=== PATIENT | female | born 1980 | race Caucasian/White ===

== ENCOUNTER → 2016-09-04 | Outpatient (CLI) | payer OTHER | END | disposition home or self-care (01) | LOC: RADMRIMAIN 18:36 | PROVIDERS: ATTEND Family Medicine | DX: Z53.9 Procedure and treatment not carried out, unspecified reason (principal) ==

== ENCOUNTER 2017-10-23 16:57 | Emergency (ER) | payer OTHER ==
[2017-10-23] MEDS ORDERED: ONDANSETRON 4 MG/2 ML VIAL IVP STA (17:38)
[2017-10-23] MEDS ORDERED: hydrOXYzine HCL 25 MG TAB PO STA (17:38)
[2017-10-23] MEDS ORDERED: MAG HYDROX/AL HYDROX/SIMETH 30 ML, HYOSCYAMINE ELIXIR 10 ML, CIMETIDINE HCL 300 MG PO STA ×3 (17:38)
[2017-10-23] MEDS ORDERED: FAMOTIDINE 20 MG TAB PO STA (17:38)
--- NOTE | 2017-10-23 17:40 | ED ---
General Adult HPI - General Chief complaint: Recheck/Abnormal Lab/Rx Stated complaint: Abd pain Time Seen by Provider: 10/23/17 17:16 Source: patient Mode of arrival: ambulatory Limitations: no limitations - History of Present Illness Initial comments: 37 yoF presenting with worsening anxiety, nausea, heart burn, and diarrhea. Patient states she has been struggling with anxiety for the past 6 months after a miscarriage. She states she has been her PCP twice this week. She was placed on Zoloft, Prednisone and a Z-pack for her anxiety as well as an upper respiratory infection. She states they have decided to prolong the dose of steroids secondary to "the nerves being inflamed in my chest." The patient states she has been waking up at night with heart burn, diaphoresis, and diarrhea. She denies personal or family history of early CA. She denies personal history of HTN, hypercholesterolemia, or tobacco abuse. Patient states her LMP began today. - Related Data Previous Rx's Medication Instructions Recorded Doxycycline Hyclate 100 mg PO BID 5 Days #10 tab 10/23/17 Ranitidine HCl [Zantac] 150 mg PO HS #30 tab 10/23/17 hydrOXYzine HCL [Atarax] 50 mg PO QID PRN #20 tab 10/23/17 Allergies Allergy/AdvReac Type Severity Reaction Status Date / Time sumatriptan [From Imitrex] Allergy Unknown Verified 10/23/17 17:11 sumatriptan succinate Allergy Unknown Verified 10/23/17 17:11 [From Imitrex] Review of Systems ROS Statement: Those systems with pertinent positive or pertinent negative responses have been documented in the HPI. Review of Systems Constitutional: Denies fever, chills Eyes: Denies change in vision, Denies pain Ears, nose, mouth, throat: Denies headaches, Denies sore throat Cardiovascular: Denies chest pain. Denies palpitations. positive heartburn Respiratory: Denies shortness of breath, Denies cough Gastrointestinal: Denies abdominal pain. Positive nausea, Denies vomiting, diarrhea. Genitourinary: Denies hematuria, Denies infections Musculoskeletal: Denies pain, Denies swelling Integumentary: Denies rash Neurological: Denies headache, focal weakness, focal numbness Psychiatric: Positive anxiety, Denies depression Hematologic/Lymphatic: Denies easy bleeding or bruising ROS Other: All systems not noted in ROS Statement are negative. Past Medical History Additional Past Medical History / Comment(s): MIGRAINE History of Any Multi-Drug Resistant Organisms: None Reported Past Surgical History: No Surgical Hx Reported Past Anesthesia/Blood Transfusion Reactions: No Reported Reaction Past Psychological History: No Psychological Hx Reported Smoking Status: Never smoker Past Alcohol Use History: None Reported Past Drug Use History: None Reported General Exam - General Exam Comments Initial Comments: General: Awake, alert, No acute Distress HENT: Normocephalic. Atraumatic Eyes: PERRL. EOMI. No scleral icterus. No injected conjunctiva Neck: Full ROM Chest/Lungs: Clear to auscultation bilaterally. No wheezing, rhonchi, or rales Cardiac: Regular rate, rhythm. No murmurs or rubs Abdomen/GI: [Soft, nontender, nondistended. No rebound, guarding, or rigidity. Musculoskeletal: Full ROM Skin: Warm, dry, intact Neurologic: A/Ox3, no weakness, no sensory deficit, no abnormal gait, no coordination deficit Psych: Anxious. Tearful. Limitations: no limitations Course Vital Signs 10/23/17 17:07 Temperature 97.9 F Pulse Rate 92 Respiratory 18 Rate Blood Pressure 137/76 O2 Sat by Pulse 97 Oximetry EKG Findings - EKG Comments: EKG Findings:: EKG shows sinus rhythm with short DE. No evidence of ST elevation , depression, or T wave inversion Medical Decision Making - Medical Decision Making Residual female presenting with her with heart burn and multiple other complaints. On initial exam the patient is awake, alert, and tearful. VSS. EKG shows NSR without ST elevation, depression. Her laboratory workup revealed a leukocytosis which is most likey secondary to the patient's prednisone use. Her CXR shows bronchitis and possibly a new infiltrate. Patient's CURB 65 score is 0. Her HEART score is 1. She has no RUQ tenderness and her hepatic panel is unremarkable. At this time patient's symptoms are likely secondary to her gastritis and GERD secondary to prednisone use. She was instructed to follow up with her primary care physician outpatient for possible stress test. She was instructed to stop taking the Zpack, continue the Zoloft as well as the steroid , and to take the new medications as prescribed. She was given Atarax for her anxiety. No further emergent workup indicated. She was given the appropriate return to ED instructions and follow up. Patient stable for discharge. - Lab Data Result diagrams: 10/23/17 18:07 10/23/17 18:07 Lab Results 10/23/17 10/23/17 10/23/17 Range/Units 18:07 18:07 18:07 WBC 17.1 H (3.8-10.6) k/uL RBC 5.41 H (3.80-5.40) m/uL Hgb 14.7 (11.4-16.0) gm/dL Hct 44.9 (34.0-46.0) % MCV 83.0 (80.0-100.0) fL MCH 27.1 (25.0-35.0) pg MCHC 32.7 (31.0-37.0) g/dL RDW 13.5 (11.5-15.5) % Plt Count 302 (150-450) k/uL Neutrophils % 88 % Lymphocytes % 8 % Monocytes % 2 % Eosinophils % 1 % Basophils % 0 % Neutrophils # 15.0 H (1.3-7.7) k/uL Lymphocytes # 1.4 (1.0-4.8) k/uL Monocytes # 0.4 (0-1.0) k/uL Eosinophils # 0.2 (0-0.7) k/uL Basophils # 0.0 (0-0.2) k/uL Sodium 143 (137-145) mmol/L Potassium 4.1 (3.5-5.1) mmol/L Chloride 108 H (98-107) mmol/L Carbon Dioxide 22 (22-30) mmol/L Anion Gap 13 mmol/L BUN 18 H (7-17) mg/dL Creatinine 0.70 (0.52-1.04) mg/dL Est GFR (CKD-EPI)AfAm >90 (>60 ml/min/1.73 sqM) Est GFR (CKD-EPI)NonAf >90 (>60 ml/min/1.73 sqM) Glucose 146 H (74-99) mg/dL Calcium 9.3 (8.4-10.2) mg/dL Total Bilirubin 0.2 (0.2-1.3) mg/dL Conjugated Bilirubin 0.0 (0.0-0.3) mg/dL Unconjugated Bilirubin 0.0 (0.0-1.1) mg/dL Delta Bilirubin 0.2 (0.0-0.2) mg/dL AST 23 (14-36) U/L ALT 51 (9-52) U/L Alkaline Phosphatase 89 (38-126) U/L Troponin I <0.012 (0.000-0.034) ng/mL Total Protein 6.4 (6.3-8.2) g/dL Albumin 3.7 (3.5-5.0) g/dL Lipase 170 (23-300) U/L Disposition Clinical Impression: Pneumonia, Chest pain, Anxiety Disposition: HOME SELF-CARE Condition: Good Instructions: Pneumonia (ED), Generalized Anxiety Disorder (ED), Diet for Stomach Ulcers and Gastritis (ED) Additional Instructions: Stop taking Z-pack. Continue taking Prednisone and Zoloft. Prescriptions: Doxycycline Hyclate 100 mg PO BID 5 Days #10 tab hydrOXYzine HCL [Atarax] 50 mg PO QID PRN #20 tab PRN Reason: Anxiety Ranitidine HCl [Zantac] 150 mg PO HS #30 tab Is patient prescribed a controlled substance at d/c from ED?: No Referrals: Carmen Ford DO [Primary Care Provider] - 1-2 days
--- NOTE | 2017-10-23 18:15 | XR ---
EXAMINATION TYPE: XR chest 2V DATE OF EXAM: 10/23/2017 COMPARISON: None HISTORY: 37-year-old female with pain TECHNIQUE: PA and lateral views FINDINGS: Heart normal size. Epicardial fat along the cardiac apex. Aorta and pulmonary vasculature within norm al limits. Mild interstitial prominence is noted. Patchy right suprahilar density. No other consolida tion or pleural effusion. IMPRESSION: 1. Interstitial prominence could reflect bronchitis or asthma. 2. Focal patchy atelectasis or early pneumonia at the right suprahilar region. Correlate with patient 's symptoms.
[2017-10-23 18:24] LABS: Basophils % (A) 0 %; Eosinophils # (A) 0.2 k/uL (0-0.7); Eosinophils % (A) 1 %; HCT 44.9 % (34.0-46.0); HGB 14.7 gm/dL (11.4-16.0); Lymphocytes # (A) 1.4 k/uL (1.0-4.8); Lymphocytes % (A) 8 %; MCH 27.1 pg (25.0-35.0); MCHC 32.7 g/dL (31.0-37.0); Mean Platelet Volume 7.5; Monocytes # (A) 0.4 k/uL (0-1.0); Monocytes % (A) 2 %; Neutrophils % (A) 88 %; Platelet Count 302 k/uL (150-450); RBC 5.41 m/uL (3.80-5.40); RDW 13.5 % (11.5-15.5); WBC 17.1 k/uL (3.8-10.6)
[2017-10-23 18:35] LABS: ALT 51 U/L (9-52); AST 23 U/L (14-36); Albumin 3.7 g/dL (3.5-5.0); Alkaline Phosphatase 89 U/L (38-126); Anion Gap 13 mmol/L; Bilirubin, Delta 0.2 mg/dL (0.0-0.2); Blood Urea Nitrogen 18 mg/dL (7-17); Calcium 9.3 mg/dL (8.4-10.2); Carbon Dioxide 22 mmol/L (22-30); Chloride 108 mmol/L (98-107); Glucose 146 mg/dL (74-99); Lipase 170 U/L (23-300); Potassium 4.1 mmol/L (3.5-5.1); Sodium 143 mmol/L (137-145); Total Bilirubin 0.2 mg/dL (0.2-1.3); Total Protein 6.4 g/dL (6.3-8.2)
[2017-10-23 20:09] VITALS: BP 122/60; PULSE 66; RESP 18; TEMP 98
== END 2017-10-23 20:07 | disposition home or self-care (01) ==
LOC: EC 16:57
DX: J18.9 Pneumonia, unspecified organism (principal); F41.9 Anxiety disorder, unspecified; J40 Bronchitis, not specified as acute or chronic; D72.829 Elevated white blood cell count, unspecified; R45.83 Excessive crying of child, adolescent or adult; R12 Heartburn; Z88.8 Allergy status to other drugs, medicaments and biological substances
CPT/HCPCS: 36415; 93005; 80048; 80076; 83690; 84484; 85025; 71046; 99284; 96374; J2405

== ENCOUNTER → 2018-05-27 | Outpatient (CLI) | payer OTHER ==
--- NOTE | 2018-05-27 17:28 | US ---
EXAMINATION TYPE: Transabdominal DATE OF EXAM: 09/28/17 COMPARISON: NONE CLINICAL HISTORY: Z36 Viability. EXAM PERFORMED: Transabdominal (TA) EXAM MEASUREMENTS: GESTATIONAL AGE / DATING Physician Established: Not yet established Dates by LMP: (13 weeks/5 days) EDC: 11/27/2018 Dates by First Scan: No previous. This is first scan Dates by Current Scan for: (13 weeks/0 days) EDC: 12/02/2018 MATERNAL ANATOMY Uterus: 14.0 x 6.5 x 7.2cm Right Ovary: Not seen. Left Ovary: 3.1 x 3.3 x 2.4cm Post CDS / Adnexa: wnl Presence of free fluid: no Presence of corpus luteal cyst: Not identified in left ovary Presence of subchorionic bleed: no GESTATION / SURVEY CRL: 6.8cm (13 weeks/0 days) Yolk Sac (normal less than 6mm): not seen Heart Rate: 144 bpm Rhythm: Normal IUP: Viable IUP Date of LMP: 02/20/2018 Beta HcG (if available): NA Tech findings called to Dr Gamble at exam's end. JJ IMPRESSION: SINGLE, LIVE IUP WITH HEART RATE 144 BPM. MEASUREMENTS CONSISTENT WITH GESTATIONAL AGE 13 WEEKS/0 DAYS AND EDC 12/02/2018.
== END | disposition home or self-care (01) ==
LOC: LABWHC1 16:25
PROVIDERS: ATTEND Obstetrics & Gynecology
DX: Z36.9 Encounter for antenatal screening, unspecified (principal)
CPT/HCPCS: 76801

== ENCOUNTER 2018-10-04 15:54 | Outpatient (CLI) | payer OTHER ==
--- NOTE | 2018-10-04 17:08 | US ---
EXAMINATION TYPE: US OB >= 14 wk fetus DATE OF EXAM: 10/04/2018 COMPARISON: US CLINICAL HISTORY: Complete. Abnormal NST. TECHNIQUE: Transabdominal (TA) GESTATIONAL AGE / DATING Physician Established: (31 weeks/ 4 days) EDC: 12/02/2018 Dates by LMP: 02/20/2018 (32 weeks/2 days) EDC: 11/27/2018 Dates by First Scan: (31 weeks/4 days) EDC: 12/02/2018 Dates by Current Scan: (31 weeks/4 days) EDC: 12/02/2018 SURVEY IUP: Single PLACENTA: Posterior PREVIA: No Previa DUANE: 18.6 cm Normal CERVICAL LENGTH (transabdominal: norm > 3.0cm): 3.6 cm BIOMETRY PRESENTATION: Vertex BPD: 8.0 cm 32 weeks / 1 days HC: 29.4 cm 32 weeks / 3 days AC: 26.7 cm 30 weeks / 5 days FL: 6.2 cm 31 weeks / 6 days ESTIMATED WEIGHT IN GRAMS: 1760 grams ESTIMATED WEIGHT IN LBS/OZ: 3 lbs. 14 oz. WEIGHT PERCENTAGE BASED ON ESTABLISHED DATES: 16.2% HC/AC: 1.1 Normal FL/AC: 23.1 Normal HEART RATE: 136 bpm RHYTHM: Normal IMPRESSION: SINGLE VIABLE INTRAUTERINE WITH NO ACUTE PROCESS; GROWTH ACCORDING TO DATES.
[2018-10-04 17:59] VITALS: BP 142/77; PULSE 97; RESP 16; TEMP 98.1
--- NOTE | 2018-10-05 16:55 | P.MSEPDOC ---
Presenting Problems - Arrival Data Date of Arrival on Unit: 10/04/18 Time of Arrival on Unit: 15:59 Mode of Transport: Ambulatory - Complaint OB-Reason for Admission/Chief Complaint: NST Medical History - Information : 2 Para: 0 Term: 0 : 0 Abortions: Spontaneous or Elective: 1 Number of Living Children: 0 - Gestational Age Gestational Age by DELIA (wks/days): 31 Weeks and 5 Days Review of Systems - Review of Systems Constitutional: No problems Breast: No problems ENT: No problems Cardiovascular: No problems Respiratory: No problems Gastrointestinal: No problems Genitourinary: No problems Musculoskeletal: No problems Neurological: No problems Skin: No problems Vital Signs - Temperature Temperature: 98.1 F Temperature Source: Oral - Pulse Pulse Oximetery Pulse Rate: 97 Pulse Assessment Method: Pulse Oximetry - Respirations Respiratory Rate: 16 Oxygen Delivery Method: Room Air - Blood Pressure Right Arm Blood Pressure: 142/77 Blood Pressure Mean: 98 Blood Pressure Source: Automatic Cuff Medical Screen Scoring (Pre) - Cervical Exam Dilation: Exam Deferred - Uterine Contractions Frequency: N/A Duration: N/A Intensity: N/A - Maternal Vital Signs Maternal Temperature: N/A Maternal Blood Pressure: N/A Signs of Preeclampsia: N/A Maternal Respirations: N/A - Pain Assessment Pain Scale Used: Numeric (1 - 10) Pain Intensity: 0 - Assessment Baseline FHR: 145 Heart Rate - NICHD Category: Category I (Normal) = 0 NST: Reactive Position: N/A - Total Score Total Score (Pre): 0 - Level of Risk Level of Risk: N/A Physician Notification (Pre) - Physician Notified Physician Notified Date: 10/04/18 Physician Notified Time: 16:52 Physician/Practitioner Notifed:: jimmy Spoke With: jimmy New Order Received: Yes - Notification Comment Comment: reported pt here for NST, which is reactive, reported a scheduled ultrasound was completed and wnl Disposition - Disposition OB Disposition: Discharge to home Discharge Date: 10/04/18 Discharge Time: 17:11 I agree with the RN Medical Screening Exam: Yes Risk & Benefit of care provided described in d/c instruction: Yes Diagnosis: RELATED CONDITIONS, UNSPECIFIED, THIRD TRIMESTER
== END 2018-10-04 17:11 | disposition home or self-care (01) ==
LOC: FBPOP 15:54
PROVIDERS: ATTEND Obstetrics & Gynecology
DX: O26.93 Pregnancy related conditions, unspecified, third trimester (principal); Z3A.31 31 weeks gestation of pregnancy
CPT/HCPCS: 59025; 76805; 99213

== ENCOUNTER 2018-10-25 15:35 | Outpatient (CLI) | payer OTHER ==
[2018-10-25 17:05] LABS: Basophils % (A) 0 %; Eosinophils # (A) 0.1 k/uL (0-0.7); Eosinophils % (A) 1 %; HCT 40.5 % (34.0-46.0); HGB 13.4 gm/dL (11.4-16.0); Lymphocytes # (A) 1.9 k/uL (1.0-4.8); Lymphocytes % (A) 15 %; MCH 28.3 pg (25.0-35.0); MCHC 33.2 g/dL (31.0-37.0); MCV 85.2 fL (80.0-100.0); Mean Platelet Volume 8.9; Monocytes # (A) 0.5 k/uL (0-1.0); Monocytes % (A) 4 %; Neutrophils # (A) 9.5 k/uL (1.3-7.7); Neutrophils % (A) 78 %; Platelet Count 225 k/uL (150-450); RBC 4.75 m/uL (3.80-5.40); WBC 12.2 k/uL (3.8-10.6)
[2018-10-25 17:26] LABS: ALT 33 U/L (9-52); AST 24 U/L (14-36); Blood Urea Nitrogen 7 mg/dL (7-17); LDH 327 U/L (313-618); Uric Acid 4.9 mg/dL (3.7-7.4)
[2018-10-25 18:07] LABS: Appearance,Urine Cloudy (Clear); Bacteria,Urine Few /hpf; Bilirubin,Urine Negative (Negative); Blood,Urine Negative (Negative); Color,Urine Light Yellow; Glucose,Urine (UA) Negative (Negative); Ketones,Urine Negative (Negative); Leukocyte Esterase,Urine Large (Negative); Mucus,Urine Rare /hpf; Nitrite,Urine Negative (Negative); PH, Urine 6.5 (5.0-8.0); Protein,Urine Negative (Negative); RBC,Urine 3 /hpf (0-5); Specific Gravity,Urine 1.015 (1.001-1.035); Squamous Epithelial Cell,Urine 7 /hpf (0-4); Urobilinogen,Urine <2.0 mg/dL (<2.0); WBC,Urine 19 /hpf (0-5)
--- NOTE | 2018-11-07 08:29 | P.MSEPDOC ---
Presenting Problems - Arrival Data Date of Arrival on Unit: 10/25/18 Time of Arrival on Unit: 15:30 Mode of Transport: Ambulatory - Complaint OB-Reason for Admission/Chief Complaint: Elevated Blood Pressure Comment: PT REPORTS FROM DR DALY OFFICE WITH ORDERS, DOCTOR JERZY ASSESSED PATIENT AT THE BEDSIDE Physician Notification (Pre) - Physician Notified Physician/Practitioner Notifed:: yes Spoke With: jerzy Peralta Order Received: Yes - Notification Comment Comment: discharge home. to keep wednesday appt as ssched for repeat nst and b.p recheck in office. Medical Screen Scoring (Post) - Cervical Exam Dilation: Exam Deferred Effacement: Exam Deferred - Uterine Contractions Frequency: N/A Duration: N/A Intensity: N/A - Maternal Vital Signs Maternal Temperature: N/A Maternal Blood Pressure: Systolic >139 = 2 Signs of Preeclampsia: Headache = 1, Visual Disturbance = 1 Maternal Respirations: N/A - Pain Assessment Pain Scale Used: Numeric (1 - 10) Pain Intensity: 1 Pain Frequency: Intermittent Pain Behavior: None Exhibited, Vocalization Pain Aggravating Factors: None - Maternal Trauma Maternal Trauma: N/A - Assessment Heart Rate: 140 Heart Rate - NICHD Category: Category I (Normal) = 0 NST: Reactive Station: N/A - Total Score Total Score (Post): 4 - Post Treatment Level of Risk Post Treatment Level of Risk: Low (0-5) Physician Notification (Post) - Physician Notified Physician Notified Date: 10/25/18 Physician Notified Time: 18:16 Physician/Practitioner Notified:: jerzy Spoke With: jerzy Peralta Order Received: Yes - Notification Comment Comment: discharge home to keep sched appt on wednesday in office for b/p recheck and repeat nst. Disposition - Disposition OB Disposition: Discharge to home Discharge Date: 10/25/18 Discharge Time: 18:40 I agree with the RN Medical Screening Exam: Yes Risk & Benefit of care provided described in d/c instruction: Yes Diagnosis: GESTATIONAL HTN W/O SIGNIFICANT PROTEINURIA, THIRD TRIMESTER
== END 2018-10-25 18:40 | disposition home or self-care (01) ==
LOC: FBPOP 15:35
PROVIDERS: ATTEND Obstetrics & Gynecology
DX: O13.3 Gestational [pregnancy-induced] hypertension without significant proteinuria, third trimester (principal); Z3A.00 Weeks of gestation of pregnancy not specified
CPT/HCPCS: 59025; 81001; 82565; 83615; 84450; 84460; 84520; 84550; 85025; 99215

== ENCOUNTER 2018-10-30 16:00 | Inpatient (IN) | payer OTHER ==
[2018-10-30] MEDS ORDERED: OXYTOCIN 10 UNIT/ML 1 ML VIAL IM PRN (16:28)
[2018-10-30] MEDS ORDERED: LIDOCAINE 0.5% (PF) 5 MG/ML (50 ML SDV) SQ PRN (16:28)
[2018-10-30] MEDS ORDERED: METHYLERGONOVINE 0.2 MG/ML 1 ML AMP IM PRN (16:28)
[2018-10-30] MEDS ORDERED: TERBUTALINE 1 MG/ML VIAL SQ PRN (16:28)
[2018-10-30] MEDS ORDERED: CARBOPROST TROMETHAMINE 250 MCG/ML 1 ML AMP IM PRN (16:28)
[2018-10-30] MEDS ORDERED: AMPICILLIN 2,000 MG in SODIUM CHLORIDE 0.9% 100 ML IVPB STA (16:28)
[2018-10-30] MEDS: LACTATED RINGERS 1,000 ML IV SCH ×3 (17:00→22:30)
[2018-10-30 17:04] VITALS: BMI 36.9
[2018-10-30] MEDS ORDERED: OXYTOCIN 30 UNITS/500 ML NS 30 UNIT in SALINE 1 500ML.BAG IV SCH (17:15)
[2018-10-30 17:21] LABS: Basophils % (A) 0 %; Eosinophils # (A) 0.1 k/uL (0-0.7); Eosinophils % (A) 1 %; HCT 37.4 % (34.0-46.0); HGB 12.6 gm/dL (11.4-16.0); Lymphocytes # (A) 2.1 k/uL (1.0-4.8); Lymphocytes % (A) 15 %; MCH 28.6 pg (25.0-35.0); MCHC 33.7 g/dL (31.0-37.0); MCV 84.9 fL (80.0-100.0); Mean Platelet Volume 8.9; Monocytes # (A) 0.7 k/uL (0-1.0); Monocytes % (A) 5 %; Neutrophils # (A) 11.2 k/uL (1.3-7.7); Neutrophils % (A) 78 %; Platelet Count 211 k/uL (150-450); RBC 4.41 m/uL (3.80-5.40); RDW 14.6 % (11.5-15.5); WBC 14.4 k/uL (3.8-10.6)
[2018-10-30 17:33] LABS: ALT 35 U/L (9-52); AST 22 U/L (14-36); Blood Urea Nitrogen 12 mg/dL (7-17); LDH 349 U/L (313-618); Uric Acid 4.6 mg/dL (3.7-7.4)
[2018-10-30 17:40] LABS: Amorphous Sediment,Urine Rare /hpf; Appearance,Urine Clear (Clear); Bacteria,Urine Occasional /hpf; Bilirubin,Urine Negative (Negative); Blood,Urine Trace (Negative); Calcium Oxalate Crystals,Urine Rare /hpf; Color,Urine Yellow; Glucose,Urine (UA) Negative (Negative); Ketones,Urine Negative (Negative); Leukocyte Esterase,Urine Negative (Negative); Mucus,Urine Rare /hpf; Nitrite,Urine Negative (Negative); PH, Urine 6.5 (5.0-8.0); Protein,Urine Negative (Negative); RBC,Urine 8 /hpf (0-5); Specific Gravity,Urine 1.016 (1.001-1.035); Squamous Epithelial Cell,Urine 2 /hpf (0-4); Urobilinogen,Urine <2.0 mg/dL (<2.0); WBC,Urine 5 /hpf (0-5)
--- NOTE | 2018-10-30 17:55 | P.HPOB ---
History of Present Illness H&P Date: 10/30/18 Chief Complaint: Leaking of fluid This patient is a pleasant 38-year-old 2 para 0 female estimated date of confinement 11/27/2018 estimated gestational age 36-0/7 weeks who presents to labor and delivery with complaints of a gush of fluid at approximately 3:00 this afternoon. care is per Dr. Henderson complicated by advanced for maternal age. Appears this patient has declined maternal medicine evaluation or any genetic evaluation. Patient was sent to labor and delivery on the for hypertension and evaluation at that time was negative. She did return to the office on Wednesday and had a category 1 nonstress test and normal blood pressure. Patient states that she had a gush of fluid at 3:00 this afternoon and not having any contractions. Review of Systems Genitourinary: Reports Menstruation: Reports amenorrhea Past Medical History Past Medical History: Hypertension Additional Past Medical History / Comment(s): MIGRAINE, hypertension with , scoliosis, IBS History of Any Multi-Drug Resistant Organisms: None Reported Past Surgical History: No Surgical Hx Reported Past Anesthesia/Blood Transfusion Reactions: No Reported Reaction Past Psychological History: Anxiety, Depression Additional Psychological History / Comment(s): prev. on zoloft and quit med during Smoking Status: Never smoker Past Alcohol Use History: None Reported Past Drug Use History: None Reported - Past Family History Father Family Medical History: Cancer, Diabetes Mellitus, Deep Vein Thrombosis (DVT) Additional Family Medical History / Comment(s): kidney cancer (surgery) Mother Family Medical History: Cancer, Deep Vein Thrombosis (DVT), Seizure Disorder Additional Family Medical History / Comment(s): breast CA (radiation), Primary Lateral Sclerosis (form of ALS) Brother(s) Family Medical History: Deep Vein Thrombosis (DVT) Medications and Allergies Home Medications Medication Instructions Recorded Confirmed Type Ranitidine HCl [Zantac] 150 mg PO HS #30 tab 10/23/17 10/30/18 Rx Ondansetron [Zofran] 4 mg PO Q12HR PRN MDD 2 10/30/18 10/30/18 History Pnv,Calcium 72/Iron/Folic Acid 1 tab PO DAILY 10/30/18 10/30/18 History [ Plus Tablet] Pseudoephedrine [Sudafed] 30 mg PO Q6H PRN MDD 4 10/30/18 10/30/18 History Allergies Allergy/AdvReac Type Severity Reaction Status Date / Time sumatriptan [From Imitrex] Allergy Unknown Verified 10/04/18 15:55 sumatriptan succinate Allergy Unknown Verified 10/04/18 15:55 [From Imitrex] Exam Intake and Output 10/30/18 10/30/18 10/30/18 06:59 14:59 22:59 Other: Weight 110.223 kg - OBG Physical Exam Abdomen: bowel sounds normal, no diffuse tenderness, no bruit present, no gua rding noted, no hepatomegaly, no splenomegaly, no mass Vulva: both: normal Vagina: Gross rupture membranes is noted Vagina: no discharge Cervix: Cervix is 2 cm 50% effaced and soft and -2 station Uterus: enlarged (Fundal height the office was 36 cm) Results blood work shows she is A positive, rubella nonimmune, RPR nonreactive, hepatitis B negative, group B strep is unknown, ultrasound done on October 04 showed a appropriately grown fetus in the vertex presentation. Result Diagrams: 10/30/18 16:50 10/30/18 16:50 Abnormal Lab Results - Last 24 Hours (Table) 10/30/18 10/30/18 10/30/18 Range/Units 16:50 16:50 16:50 WBC 14.4 H (3.8-10.6) k/uL Neutrophils # 11.2 H (1.3-7.7) k/uL Creatinine 0.49 L (0.52-1.04) mg/dL Urine Blood Trace H (Negative) Urine RBC 8 H (0-5) /hpf Calcium Oxalate Crystal Rare H (None) /hpf Amorphous Sediment Rare H (None) /hpf Urine Bacteria Occasional H (None) /hpf Urine Mucus Rare H (None) /hpf Assessment and Plan Assessment: This is a 38-year-old 2 para 0 female 36-0/7 weeks gestation who is admitted to labor and delivery with premature rupture membranes. Patient is unknown group B strep status and due to prematurity and this fact I'm going to start her on IV antibiotics for prophylaxis. Since she is not having any contractions we'll also begin Pitocin. Patient did have a few mild variable decelerations however at this time heart tones are reassuring. I did have a long discussion with the patient and her about the need for delivery due to the ruptured membranes and the possibility of special care as well. All the patient's questions are answered. Patient also has elevated blood pressure on admission of 163/87. This does appear to be anxiety related however will check preeclampsia labs and continue to monitor her blood pressure closely. (1) 36 weeks gestation of Current Visit: Yes Status: Acute Code(s): Z3A.36 - 36 WEEKS GESTATION OF SNOMED Code(s): 47945950 (2) Premature rupture of membranes Current Visit: Yes Status: Acute Code(s): O42.90 - CRISTIAN ROM, 7TH0 BETW RUPT & ONST LABR, UNSP WEEKS OF GEST SNOMED Code(s): 58741683 (3) Gestational hypertension Current Visit: Yes Status: Acute Code(s): O13.9 - GESTATIONAL HTN W/O SIGNIFICANT PROTEINURIA, UNSP TRIMESTER SNOMED Code(s): 665296520 (4) Elderly primigravida in third trimester Current Visit: Yes Status: Acute Code(s): O09.513 - SUPERVISION OF ELDERLY PRIMIGRAVIDA, THIRD TRIMESTER SNOMED Code(s): 10566722
[2018-10-30 17:59] LABS: INR 0.8 (<1.2); Partial Thromboplastin Time 23.9 sec (22.0-30.0); Prothrombin Time 9.3 sec (9.0-12.0)
[2018-10-30] MEDS ORDERED: PHENYLEPHRINE-0.9% NACL SYG 1 MG/10 ML SYRINGE ONE (21:00)
[2018-10-30] MEDS ORDERED: ceFAZolin 1,000 MG VIAL ONE (21:00)
[2018-10-30] MEDS ORDERED: KETOROLAC 30 MG/ML 1 ML VIAL ONE (21:00)
[2018-10-30] MEDS ORDERED: MORPHINE SULFATE (PF) 0.3 MG/0.3 ML SYR ONE (21:00)
[2018-10-30] MEDS ORDERED: ONDANSETRON 4 MG/2 ML VIAL ONE (21:00)
[2018-10-30] MEDS ORDERED: AMPICILLIN 1,000 MG in SODIUM CHLORIDE 0.9% 50 ML IVPB SCH (21:00)
[2018-10-30] MEDS ORDERED: LACTATED RINGERS 1,000 ML BAG IV ONE (21:00)
[2018-10-30] MEDS ORDERED: NALBUPHINE 10 MG/ML (1 ML AMP) ONE (21:00)
[2018-10-30] MEDS ORDERED: OXYTOCIN 10 UNIT/ML 1 ML VIAL ONE (21:00)
[2018-10-30] MEDS ORDERED: ACETAMINOPHEN TAB 325 MG TAB PO PRN (21:48)
[2018-10-30] MEDS ORDERED: ONDANSETRON 4 MG/2 ML VIAL IVP PRN (21:48)
[2018-10-30] MEDS ORDERED: NALOXONE 0.4 MG/ML 1 ML VIAL IV PRN (21:48)
[2018-10-30] MEDS ORDERED: diphenhydrAMINE 25 MG CAP PO PRN (21:48)
[2018-10-30] MEDS ORDERED: ZOLPIDEM 5 MG TAB PO PRN (21:48)
[2018-10-30] MEDS ORDERED: METOCLOPRAMIDE 5 MG/ML 2 ML VIAL IVP PRN (21:48)
[2018-10-30] MEDS ORDERED: diphenhydrAMINE 50 MG/ML 1 ML VIAL IVP PRN (21:48)
[2018-10-30] MEDS ORDERED: SIMETHICONE 80 MG CHEWABLE PO PRN (21:48)
[2018-10-30] MEDS ORDERED: LANOLIN CREAM 5 GM TUBE TOPICAL PRN (21:48)
[2018-10-30] MEDS ORDERED: MEASLES-MUMPS-RUBELLA VACC/PF 12,500 UNIT/0.5 ML VIAL SQ ONE (21:48)
[2018-10-30] MEDS ORDERED: OXYTOCIN 20 UNITS/1000 ML NS 1,000 ML IV SCH (22:00)
--- NOTE | 2018-10-30 22:11 | P.OP ---
Date of Procedure: 10/30/18 Preoperative Diagnosis: #1: 36-0/7 weeks . #2: premature rupture membranes. #3: Elderly primigravida. #4: Category 2 heart tones persistent remote from delivery #5: Gestational hypertension Postoperative Diagnosis: #1: Same. #2: Double nuchal cord. #3: Probable intrauterine growth restriction Procedure(s) Performed: Emergent primary low transverse section Anesthesia: spinal Surgeon: Romel Sifuentes Handle Maker #1: Ashley Tobin Estimated Blood Loss (ml): 600 Pathology: other (Placenta) Condition: stable Disposition: floor Indications for Procedure: Please see dictated H&P for intimate details of this patient's admission. Brief summary this is a pleasant 38-year-old 2 para 1 female 36-0/7 weeks gestation who is admitted later this afternoon with complaints of gush of fluid at about 3 in the afternoon. heart tones are category 1 however there are some variable decelerations. Patient's cervix is 2 cm dilated and she's having no contractions. Patient started on antibiotics due to unknown group B strep status. Patient's subsequent a gets Pitocin induction of labor. Patient begins having decreased variability and repetitive variable decelerations. Despite the usual resuscitative measures these do not resolve and I recommended proceed with immediate delivery. Patient and I and her discussed this and agreed to proceed. Patient does understand the surgery and risks. Operative Findings: This is a vigorous viable male infant Apgars 7 and 9 delivery time 2116 hrs. Infant had a very small placenta with a double nuchal cord. Infant weighed 4 lbs. 6 oz. suggestive of intrauterine growth restriction. appeared grossly normal Description of Procedure: This patient has a Pacheco catheter placed to straight drain. Patient's quickly taken to the operating room. At that time heart tones do rebound to the 120s to 130s but she continues to have some variable decelerations. I discussed with the anesthesiologist and we feel that we do have the necessary time to proceed with spinal anesthetic. Spinal anesthetic is administered. Patient is adequate level of anesthesia. She has abdominal prep and drape. Scalpels and taken and a Pfannenstiel skin incision is then made. A second scalpel is taken down to the fascia and the fascia scored with a knife. Fascial incision extended bilaterally using the Perez scissors. Fascia is then dissected sharply off the rectus muscles. Rectus muscles are the peritoneum identified and entered sharply. Peritoneal incision extended bluntly. Bladder blade is then placed. Bladder peritoneum was taken off the lower uterine segment. Scalpels and taken and a low transverse uterine incision is then made. Using a hemostat I into the uterine cavity bluntly. The loss of small amount of clear fluid. This uterine incision is then extended bluntly. The 's head is then delivered in the vertex presentation with fundal pressure. Mouth and nares are bulb suctioned. There is nuchal cord 2. The umbilical cord is very thin. We then have delivery the rest of this infant's body. This is a vigorous viable male infant Apgars 7 and 9 delivery time is 2116 hrs. Infant does have spontaneous respiration and good cry and grossly appears normal although it does appear to be gross restricted in appearance. The umbilical cord is doubly clamped and cut is handed off to special care nurses in attendance. Placenta is then manually extracted. This is sent off to pathology. Uterus is large and bulky and is delivered through the incision with some effort. Uterine incision demarcated with Faye clamps and then closed using 0 Vicryl running locked fashion. This is done in 2 layers. Excellent hemostasis is noted. The tubes and ovaries appear normal for term gestation. Excess fluid is removed from the abdomen and pelvis. Uterus placed back into the abdomen. Parietal peritoneum was then closed using 0 Vicryl running fashion. Rectus muscles reapproximated in 0 Vicryl interrupted fashion. Fascia is then closed using 0 PDS. Fascial incision is intact and hemostatic. Subcutaneous tissues and closed using a 3-0 Vicryl. Skin is and closed using gosia. Excellent hemostasis is noted. All counts are correct 3. There are no complications. Infant and mother are taken to the birthing suite in satisfactory condition.
[2018-10-31] MEDS: KETOROLAC 30 MG/ML 1 ML VIAL IVP PRN ×3 (05:05→19:25)
[2018-10-31] MEDS: ceFAZolin IN SWFI 2 GM/20 ML SYRINGE IVP SCH ×2 (05:07→13:13)
[2018-10-31 06:21] LABS: Basophils % (A) 0 %; Eosinophils % (A) 0 %; HCT 37.4 % (34.0-46.0); HGB 12.3 gm/dL (11.4-16.0); Lymphocytes # (A) 1.9 k/uL (1.0-4.8); Lymphocytes % (A) 11 %; MCH 28.3 pg (25.0-35.0); MCHC 32.9 g/dL (31.0-37.0); MCV 85.9 fL (80.0-100.0); Mean Platelet Volume 8.6; Monocytes # (A) 0.6 k/uL (0-1.0); Monocytes % (A) 4 %; Neutrophils # (A) 14.7 k/uL (1.3-7.7); Neutrophils % (A) 84 %; Platelet Count 193 k/uL (150-450); RBC 4.36 m/uL (3.80-5.40); RDW 14.6 % (11.5-15.5); WBC 17.5 k/uL (3.8-10.6)
--- NOTE | 2018-10-31 06:31 | P.PN ---
Progress Note - Text Progress Note Date: 10/31/18 Post op day 1 from spinal with duramorph, patient sitting up in bed this morning. no lower ext weakness, able to stand and walk. no parasthesia. no headaches or pruritis. able to urinate. continue to monitor. will sign off. contact with any issues.
[2018-10-31] MEDS: SENNOSIDES-DOCUSATE SODIUM 1 EACH TAB PO SCH ×2 (09:17→21:13)
--- NOTE | 2018-10-31 13:27 | P.PNOBGPC ---
Subjective - Subjective Principal diagnosis: Postop day 1 Interval history: Overall doing very well. She is involuting, voiding, and she is tolerating her diet. She voices no complaints. Vital signs stable afebrile. Patient reports: Reports appetite normal, Reports voiding normally, Reports pain well controlled, Reports ambulating normally : in NICU Objective - Vital Signs Latest vital signs: Vital Signs Temp Pulse Resp BP Pulse Ox 10/31/18 12:00 98.3 F 105 H 16 128/76 98 10/31/18 09:12 98.4 F 102 H 17 131/80 99 10/31/18 04:00 98.4 F 107 H 16 142/72 98 10/30/18 23:46 98.3 F 93 14 128/71 10/30/18 23:15 96 14 135/76 10/30/18 22:45 98.2 F 105 H 14 134/82 97 10/30/18 22:30 100 16 142/78 98 10/30/18 22:15 104 H 14 125/62 10/30/18 22:00 106 H 14 122/61 10/30/18 21:45 96.4 F L 112 H 14 114/54 98 10/30/18 16:27 98.8 F 117 H 20 163/87 Intake and Output 10/30/18 10/31/18 10/31/18 22:59 06:59 14:59 Intake Total 1100 Output Total 500 200 Balance 1100 -500 -200 Intake: Intake, IV Titration 1100 Amount Ampicillin 2,000 mg In 100 Sodium Chloride 0.9% 100 ml @ 200 mls/hr IVPB ONCE STA Rx#:[id number] Lactated Ringers 1,000 ml 1000 @ 125 mls/hr IV .Q8H [facility] Rx#:[id number] Output: Urine 500 200 Uretheral (Pacheco) 200 Other: # Voids 3 1 Weight 110.223 kg - Labs Labs: Abnormal Lab Results - Last 24 Hours (Table) 10/30/18 10/30/18 10/30/18 Range/Units 16:50 16:50 16:50 WBC 14.4 H (3.8-10.6) k/uL Neutrophils # 11.2 H (1.3-7.7) k/uL Fibrinogen (200-500) mg/dL Creatinine 0.49 L (0.52-1.04) mg/dL Urine Blood Trace H (Negative) Urine RBC 8 H (0-5) /hpf Calcium Oxalate Crystal Rare H (None) /hpf Amorphous Sediment Rare H (None) /hpf Urine Bacteria Occasional H (None) /hpf Urine Mucus Rare H (None) /hpf U Random Total Protein (<12) mg/dL 10/30/18 10/30/18 10/31/18 Range/Units 16:50 16:50 05:39 WBC 17.5 H (3.8-10.6) k/uL Neutrophils # 14.7 H (1.3-7.7) k/uL Fibrinogen 636 H (200-500) mg/dL Creatinine (0.52-1.04) mg/dL Urine Blood (Negative) Urine RBC (0-5) /hpf Calcium Oxalate Crystal (None) /hpf Amorphous Sediment (None) /hpf Urine Bacteria (None) /hpf Urine Mucus (None) /hpf U Random Total Protein 14 H (<12) mg/dL
[2018-10-31] MEDS: ZANTAC 150 MG PO SCH ×2 (17:36→18:14)
[2018-10-31] MEDS: LACTATED RINGERS 1,000 ML IV SCH ×3 (21:12→23:10)
[2018-10-31] MEDS: HYDROcodone/APAP 5-325MG 1 EACH TAB PO PRN (22:05)
[2018-11-01] MEDS: IBUPROFEN 600 MG TAB PO PRN ×3 (04:19→16:28)
[2018-11-01] MEDS: ZANTAC 150 MG PO SCH ×2 (07:32→17:06)
--- NOTE | 2018-11-01 08:41 | P.PNOBGPC ---
Subjective - Subjective Principal diagnosis: Postop day 2 Interval history: Overall doing very well. She is involuting, voiding and she is tolerating her diet. Her incision is clean dry and intact. We'll remove the dressing this morning. We'll continue current care. Patient reports: Reports appetite normal, Reports voiding normally, Reports pain well controlled, Reports ambulating normally : in NICU Objective - Vital Signs Latest vital signs: Vital Signs Temp Pulse Resp BP Pulse Ox 11/01/18 08:00 97.9 F 105 H 13 132/81 100 11/01/18 00:00 98.3 F 101 H 15 135/77 10/31/18 20:00 98 F 111 H 15 139/89 10/31/18 16:00 98.4 F 90 16 128/83 98 10/31/18 12:00 98.3 F 105 H 16 128/76 98 10/31/18 09:12 98.4 F 102 H 17 131/80 99 Intake and Output 10/31/18 11/01/18 11/01/18 22:59 06:59 14:59 Other: # Voids 2 1 1
[2018-11-01] MEDS: SENNOSIDES-DOCUSATE SODIUM 1 EACH TAB PO SCH ×2 (10:38→20:43)
[2018-11-01] MEDS ORDERED: DIPH,PERTUS(ACELL)TETVAC-LF 0.5 ML VIAL IM ONE (20:38)
[2018-11-01] MEDS: HYDROcodone/APAP 5-325MG 1 EACH TAB PO PRN (22:31)
[2018-11-02] MEDS: IBUPROFEN 600 MG TAB PO PRN ×3 (04:40→19:31)
--- NOTE | 2018-11-02 08:55 | P.PNOBGPC ---
Subjective - Subjective Principal diagnosis: post op day 3 Interval history: Doing very well postop day 3. She is involuting, voiding and tolerating her diet. She voices complaining of some increased abdominal tenderness feels kind of like bruising but overall her incisions clean dry and intact. She is reassured. Patient reports: Reports appetite normal, Reports voiding normally, Reports pain well controlled, Reports ambulating normally : in NICU Objective - Vital Signs Latest vital signs: Vital Signs Temp Pulse Resp BP Pulse Ox 11/02/18 08:00 98.0 F 103 H 16 123/72 98 11/02/18 00:00 97.7 F 105 H 18 125/74 98 11/01/18 16:00 99.0 F 105 H 16 129/80 99 Intake and Output 11/01/18 11/02/18 11/02/18 22:59 06:59 14:59 Intake Total 600 Balance 600 Intake: Oral 600 Other: # Voids 1 2 2 - Exam Lungs: bilateral: normal Chest: Normal S1, Normal S2 Extremities: Present: normal Abdomen: Present: normal appearance, soft. Absent: distention, tenderness Incision: Present: normal, dry, intact Uterus: Present: normal, firm
[2018-11-02] MEDS: SENNOSIDES-DOCUSATE SODIUM 1 EACH TAB PO SCH ×2 (09:15→21:30)
[2018-11-02] MEDS: ZANTAC 150 MG PO SCH ×2 (09:15→18:06)
[2018-11-02] MEDS: HYDROcodone/APAP 5-325MG 1 EACH TAB PO PRN ×2 (16:20→22:31)
[2018-11-03] MEDS: IBUPROFEN 600 MG TAB PO PRN ×2 (04:24→12:33)
[2018-11-03 08:48] VITALS: BP 137/81; PULSE 92; RESP 18; TEMP 98.2
[2018-11-03] MEDS: HYDROcodone/APAP 5-325MG 1 EACH TAB PO PRN (09:11)
[2018-11-03] MEDS: SENNOSIDES-DOCUSATE SODIUM 1 EACH TAB PO SCH (09:14)
[2018-11-03] MEDS: ZANTAC 150 MG PO SCH (09:16)
--- NOTE | 2018-11-03 09:36 | P.DS ---
Providers Date of admission: 10/30/18 16:17 Expected date of discharge: 11/03/18 Attending physician: Ga Henderson Primary care physician: Stated None Hospital Course: Doing very well this morning. She is ambulating, voiding, and she is tolerating her diet. She voices no complaints. Vital signs stable and afebrile. Heart regular, lungs clear, extremities without pain. Abdomen soft nontender and her incision is clean dry and intact. Assessment postop day 4. Plan discharged home remove gosia. She'll follow up with me in 1 week. Prescription for a breast pump as well as pain medication has been provided and all questions are answered for her prior to her discharge. Patient Condition at Discharge: Good Plan - Discharge Summary New Discharge Prescriptions: New Ibuprofen [Motrin] 600 mg PO Q6HR PRN #30 tab PRN Reason: Pain HYDROcodone/APAP 5-325MG [[place] 5-325] 1 tab PO Q4HR PRN #20 tab PRN Reason: Pain No Action Ranitidine HCl [Zantac] 150 mg PO HS #30 tab Pseudoephedrine [Sudafed] 30 mg PO Q6H PRN MDD 4 PRN Reason: Congestion Pnv,Calcium 72/Iron/Folic Acid [ Plus Tablet] 1 tab PO DAILY Ondansetron [Zofran] 4 mg PO Q12HR PRN MDD 2 PRN Reason: Nausea And Vomiting Discharge Medication List Ranitidine HCl [Zantac] 150 mg PO HS #30 tab 10/23/17 [Rx] Ondansetron [Zofran] 4 mg PO Q12HR PRN MDD 2 10/30/18 [History] Pnv,Calcium 72/Iron/Folic Acid [ Plus Tablet] 1 tab PO DAILY 10/30/18 [History] Pseudoephedrine [Sudafed] 30 mg PO Q6H PRN MDD 4 10/30/18 [History] HYDROcodone/APAP 5-325MG [[place] 5-325] 1 tab PO Q4HR PRN #20 tab 11/03/18 [Rx] Ibuprofen [Motrin] 600 mg PO Q6HR PRN #30 tab 11/03/18 [Rx] Follow up Appointment(s)/Referral(s): Ga Henderson DO [Doctor of Osteopathic Medicine] - 1 Week Activity/Diet/Wound Care/Special Instructions: No heavy lifting, limit stairs and driving, and pelvic rest. If any high temperatures, heavy bleeding, or severe pain call my office Discharge Disposition: HOME SELF-CARE
== END 2018-11-03 13:30 | disposition home or self-care (01) | DRG 788 ==
LOC: FBPOP 16:00 → 4FBP 16:17
PROVIDERS: ADMIT Obstetrics & Gynecology; ATTEND Obstetrics & Gynecology
PROC: 3E0134Z Introduction of Serum, Toxoid and Vaccine into Subcutaneous Tissue, Percutaneous Approach (ICD-10-PCS; 2018-10-30)
PROC: 10D00Z1 Extraction of Products of Conception, Low, Open Approach (ICD-10-PCS; principal; 2018-10-30 21:00)
PROC: 3E0234Z Introduction of Serum, Toxoid and Vaccine into Muscle, Percutaneous Approach (ICD-10-PCS; 2018-11-01)
DX: O42.013 Preterm premature rupture of membranes, onset of labor within 24 hours of rupture, third trimester (principal); M41.9 Scoliosis, unspecified; O36.5930 Maternal care for other known or suspected poor fetal growth, third trimester, not applicable or unspecified; Z3A.36 36 weeks gestation of pregnancy; Z37.0 Single live birth; O69.81X0 Labor and delivery complicated by cord around neck, without compression, not applicable or unspecified; O76 Abnormality in fetal heart rate and rhythm complicating labor and delivery; O13.4 Gestational [pregnancy-induced] hypertension without significant proteinuria, complicating childbirth; G43.909 Migraine, unspecified, not intractable, without status migrainosus; O99.62 Diseases of the digestive system complicating childbirth; K58.9 Irritable bowel syndrome, unspecified; O99.344 Other mental disorders complicating childbirth; F41.9 Anxiety disorder, unspecified; F32.9 Major depressive disorder, single episode, unspecified; Z23 Encounter for immunization; Z79.899 Other long term (current) drug therapy; Z88.8 Allergy status to other drugs, medicaments and biological substances; Z83.2 Family history of diseases of the blood and blood-forming organs and certain disorders involving the immune mechanism; Z80.51 Family history of malignant neoplasm of kidney; Z83.3 Family history of diabetes mellitus; Z80.3 Family history of malignant neoplasm of breast; Z82.0 Family history of epilepsy and other diseases of the nervous system
CPT/HCPCS: 81001; 82565; 82570; 83615; 84156; 84450; 84460; 84520; 84550; 85025; 85384; 85610; 85730; 86850; 86900; 86901; 88307; 90707; 90715